=== PATIENT | female | born 1990 | race Caucasian/White ===

== ENCOUNTER 2024-05-12 17:03 | Emergency (ER) | payer OTHER, SELFPAY ==
[2024-05-12 17:07] VITALS: BP 121/84; PULSE 81; RESP 16; TEMP 37.2; O2SAT 98; BMI 23.4
--- NOTE | 2024-05-12 19:27 | ED_ITS ---
HPI - Wound/Laceration General Date Seen: 05/12/24 Chief Complaint: Laceration/Wound Stated Complaint: cut finger (R middle) Time Seen by Provider: 05/12/24 17:12 Source: patient and healthcare interpreter Mode of arrival: ambulatory History of Present Illness HPI narrative: Patient is a 33-year-old female presenting to emergency department for cut to her right middle finger he. Is on the volar aspect just proximal to the fingernail. Does not involve the fingernail. She states she was cleaning a tomato color work when this happened. It occurred around 15:20. Bleeding is controlled at this time. No other concerns noted. Does not know when her last tetanus was. Related Data Previous Rx's ?Medication ?Instructions ?Recorded cephalexin 500 mg capsule 500 mg PO QID #20 caps 05/12/24 Allergies Allergy/AdvReac Type Severity Reaction Status Date / Time No Known Drug Allergies Allergy Verified 05/12/24 17:15 Review of Systems Narrative: Pertinent systems reviewed and were negative unless stated in HPI Exam Narrative: Exam Narrative: Const: Well-nourished, Well-developed, in no distress Eyes: PERRL, no conjunctival injection, and symmetrical lids HENT: Atraumatic external nose and ears. Moist mucous membranes. MSK:Extremities w/o deformity, Normal Active ROM Skin: Warm, Dry. Roughly 1 cm laceration to the tip of the right middle finger Neuro: Normal Muscle tone, No focal neurological deficits. Psych: Awake, Alert, & Oriented x3. Appropriate mood and affect. Const: Vital Signs, click to edit/add: Vital Signs - 24 hr 05/12/24 17:07 Temperature 99.0 F Pulse Rate [Left P ulse Oximeter] 81 Respiratory Rate 16 Blood Pressure [Ri ght Upper Arm] 121/84 Pulse Oximetry 98 Oxygen Delivery Me thod Room Air Course Vital Signs Vital signs: Initial Vital Signs Temperature 99.0 F 05/12/24 17:07 Temperature Source Temporal Artery Scan 05/12/24 17:07 Pulse Rate 81 05/12/24 17:07 Pulse Rhythm Regular 05/12/24 17:07 Pulse Strength 3+ Normal 05/12/24 17:07 Respiratory Rate 16 05/12/24 17:07 Blood Pressure 121/84 05/12/24 17:07 Blood Pressure Mean 96 05/12/24 17:07 Blood Pressure Position Sitting 05/12/24 17:07 Pulse Oximetry 98 05/12/24 17:07 Oxygen Delivery Method Room Air 05/12/24 17:07 Vital Signs Temperature 99.0 F 05/12/24 17:07 Pulse Rate 81 05/12/24 17:07 Respiratory Rate 16 05/12/24 17:07 Blood Pressure 121/84 05/12/24 17:07 Pulse Oximetry 98 05/12/24 17:07 Oxygen Delivery Method Room Air 05/12/24 17:07 Temperature 99.0 F 05/12/24 17:07 Pulse Rate 81 05/12/24 17:07 Respiratory Rate 16 05/12/24 17:07 Blood Pressure 121/84 05/12/24 17:07 Pulse Oximetry 98 05/12/24 17:07 Oxygen Delivery Method Room Air 05/12/24 17:07 MDM - Wound/Laceration MDM Narrative Medical decision making narrative: Patient is a 33-year-old female with a cut to her right middle finger tip. Does not involve the fingernail. Bleeding is controlled. Irrigated extensively and laceration was closed with 3 sutures.. Tolerated the procedure well. Nursing staff will make sure her tetanus is updated. No other concerns noted. Considering she does not have primary care and there is some concern she could have poor follow-up I will will start her on antibiotics as it was cut on a blade that was contaminated by food products and it is a finger tip and fingers can get infected quite easily. She is agreeable to this plan Discharge Plan Discharge Clinical Impression: Laceration Patient Disposition: Home, Self-Care Condition: Stable Instructions: Finger Laceration (ED) Additional Instructions: Follow-up with your primary care provider or urgent care in the next 7 days to have the 3 sutures removed. For next 6 months, once sutures are removed, whenever you go outside put a dab of sunscreen over the laceration site to improve scar appearance. Topical antibiotics are not necessary at this time. Patient can shower but do not submerge the laceration until sutures are removed. Take antibiotics as directed Prescriptions: New cephalexin 500 mg capsule 500 mg PO QID Qty: 20 0RF Stand Alone Forms: [facility] Info Instructions Procedures Laceration Right middle fingertip: Name of person performing procedure: Gage Galeano Site: hand (Middle fingertip) Side (If applicable): right Size (cm): 1 Description: linear and clean Depth: simple, single layer Local Anesthetic: lidocaine 1% (Digital nerve block) Amount of anesthesia used (mL): 3 Pre-repair: wound explored, irrigated extensively and deep structures intact Skin layer closed with: nylon Size (cm): 5-0 Number of sutures: 3 Technique: simple, interrupted
[2024-05-12] MEDS: TETANUS/DIPHTH/PERTUSSIS 0.5 ML SYRINGE IM (19:46)
[2024-05-12] MEDS: LIDOCAINE 1%-EPI 1:100,000 3 ML INFILTRATI (19:47)
== END 2024-05-12 20:02 | disposition home or self-care (01) ==
LOC: ED 19:57
PROVIDERS: Emergency Provider Student in an Organized Health Care Education/Training Program
DX: S61.212A Laceration without foreign body of right middle finger without damage to nail, initial encounter (principal); W45.8XXA Other foreign body or object entering through skin, initial encounter; W26.9XXA Contact with unspecified sharp object(s), initial encounter; Y93.G3 Activity, cooking and baking; Y99.0 Civilian activity done for income or pay
CPT/HCPCS: 12001; 90471; 90715; 99283

== ENCOUNTER 2024-05-19 17:12 | Emergency (ER) | payer OTHER, SELFPAY ==
[2024-05-19 17:23] VITALS: BP 117/83; PULSE 86; RESP 18; TEMP 36.5; O2SAT 96
--- NOTE | 2024-05-19 17:26 | ED.GENADULT ---
HPI - General Adult General Chief complaint: Skin/Abscess/Foreign Body Stated complaint: needs stitches removed Time Seen by Provider: 05/19/24 17:13 History of Present Illness HPI narrative: This patient comes in to have sutures removed from her right middle finger. She had 3 sutures placed to repair a wound and reports that 1 of the sutures came out spontaneously. She does not have any other issues and is requesting a note stating she is okay to return to work. Related Data Previous Rx's ?Medication ?Instructions ?Recorded cephalexin 500 mg capsule 500 mg PO QID #20 caps 05/12/24 Allergies Allergy/AdvReac Type Severity Reaction Status Date / Time No Known Drug Allergies Allergy Verified 05/19/24 17:25 Review of Systems Status of ROS: Reports: 10 or more systems reviewed and unremarkable except as noted in History and below Narrative: Constitutional: No fevers, no weight gain or loss. Eyes: No discharge. No vision changes. HENT: No congestion, no sore throat, no ear pain. Cardiovascular: No chest pain, no palpitations. Respiratory: No shortness of breath, no wheezes, no cough. Gastrointestinal: No abdominal pain, no vomiting, no diarrhea. Genitourinary: No dysuria, no hematuria. Musculoskeletal: Normal range of motion. Skin: No rashes, no pruritis. Neurological: No dizziness, weakness, sensory change, speech change. Endo/Heme/Allergies: No bruising or bleeding. No polydipsia. Pysch: no suicidality, no anxiety, no insomnia. All other systems reviewed and are negative. Exam Narrative: Exam Narrative: Constitutional: Well-developed, well-nourished, no acute distress. HEENT: Normocephalic, atraumatic. Neck: Normal range of motion. Nontender. Supple. Heart: Regular. No murmurs. Normal rate. Intact distal pulses. Lungs: Clear to auscultation. No chest discomfort. No wheezes, rhonchi, or rales. Abdomen: Normal bowel sounds. Nontender. No rebound tenderness. Genitalia: Deferred. Back: No midline tenderness. Normal range of motion. Extremities: Normal range of motion. Wound on the right middle finger was repaired by suture and healing properly. Skin: Intact. No rash. Warm. No erythema or pallor. Neurologic: No altered sensation. No weakness. Alert and oriented. Psychiatric: No suicidality. No anxiety or depression. No insomnia. Nursing notes and vitals signs are reviewed. Const: Vital Signs, click to edit/add: Vital Signs - 24 hr 05/19/24 17:23 Temperature 97.7 F Pulse Rate [Pulse Oximeter] 86 Respiratory Rate 18 Blood Pressure [Ri ght Upper Arm] 117/83 Pulse Oximetry 96 Oxygen Delivery Me thod Room Air Course Vital Signs Vital signs: Initial Vital Signs Temperature 97.7 F 05/19/24 17:23 Temperature Source Temporal Artery Scan 05/19/24 17:23 Pulse Rate 86 05/19/24 17:23 Respiratory Rate 18 05/19/24 17:23 Blood Pressure 117/83 05/19/24 17:23 Blood Pressure Mean 94 05/19/24 17:23 Blood Pressure Position Sitting 05/19/24 17:23 Pulse Oximetry 96 05/19/24 17:23 Oxygen Delivery Method Room Air 05/19/24 17:23 Vital Signs Temperature 97.7 F 05/19/24 17:23 Pulse Rate 86 05/19/24 17:23 Respiratory Rate 18 05/19/24 17:23 Blood Pressure 117/83 05/19/24 17:23 Pulse Oximetry 96 05/19/24 17:23 Oxygen Delivery Method Room Air 05/19/24 17:23 Temperature 97.7 F 05/19/24 17:23 Pulse Rate 86 05/19/24 17:23 Respiratory Rate 18 05/19/24 17:23 Blood Pressure 117/83 05/19/24 17:23 Pulse Oximetry 96 05/19/24 17:23 Oxygen Delivery Method Room Air 05/19/24 17:23 Medical Decision Making MDM Narrative Medical decision making narrative: This patient comes in simply for suture removal. Two sutures were removed and instructions regarding ongoing care were given. Discharge Plan Discharge Clinical Impression: Encounter for removal of sutures Patient Disposition: Home, Self-Care Condition: Stable Additional Instructions: Continue current plans. Use [id number] medicines as needed and directed. Follow up with MD return if worsening. Prescriptions: No Action cephalexin 500 mg capsule 500 mg PO QID Qty: 20 0RF Follow Up/Referrals: Provider,Not a Local [Primary Care Provider] - Stand Alone Forms: [facility] Info Instructions
== END 2024-05-19 17:44 | disposition home or self-care (01) ==
LOC: ED 17:37
PROVIDERS: Emergency Provider Emergency Medicine Emergency Medical Services
DX: Z48.02 Encounter for removal of sutures (principal)
CPT/HCPCS: 99281; 99284

== ENCOUNTER 2024-11-03 14:38 | Outpatient (CLI) | payer BC, SELFPAY | END 2024-11-03 14:39 | disposition home or self-care (01) | LOC: NFLDREF 11-05 02:51 | DX: R35.0 Frequency of micturition (principal) | CPT/HCPCS: 87086 ==